=== PATIENT | male | born 2000 | race Two or more races ===

== ENCOUNTER 2024-08-11 17:19 | Emergency (ER) | payer SELFPAY ==
[~2024-08-11] VITALS: Ht 172.7 cm; Wt 127.0 kg
[2024-08-11 17:45] VITALS: BP 145/90; TEMP 98.2
[2024-08-11] MEDS ORDERED: BENZ-13 PO (18:02)
[2024-08-11] MEDS ORDERED: PENI500T PO (18:02)
[2024-08-11 18:16] VITALS: O2SAT 99
== END 2024-08-11 18:16 | disposition home or self-care (01) ==
LOC: ER 18:09
DX: R07.0 Pain in throat (principal); R09.81 Nasal congestion; R05.9 Cough, unspecified